=== PATIENT | female | born 1985 | race Caucasian/White ===

== ENCOUNTER 2016-07-26 21:39 | Emergency (ER) | payer OTHER ==
[~2016-07-26] VITALS: Ht 162.5 cm; Wt 99.8 kg
[~2016-07-26 21:39] MED LIST: 'PARAFON FORTE500 M1 PO; ACTOS15 MG PO; AMARYL4 MG; AMARYL4 MG PO; ANAPROX DS550 MG PO; ATARAX25 MG PO; BACTRIM DS 8001 TA1 PO; BENADRYL25 M1 PO; BENTYL10 MG PO; CATAFLAM50 MG PO; CLINDAMYCIN HC300 MG PO; CORTISPORIN OP7.5 ML OPH; DICYCLOMINE HCL20 MG PO; Diabeta,Micron2.5 MG PO; ENDOCET 650 MG-1 TA1 PO; FLAGYL500 MG PO; FLEXERIL10 MG PO; HYDROCODONE BIT1 T11 PO; IBU800 MG PO; JANUVIA100 MG PO; KEFLEX500 MG PO; LANTUS100 U/ML SC; LEVAQUIN750 MG PO; LIDEX 0.05% CRE15 GM T; LIPITOR10 MG PO; MACROBID100 M1 PO; METFORMIN1000 MG PO; METFORMIN500 MG PO; MOTRIN800 MG PO; NEURONTIN300 MG PO; NORCO 5-325 TA1 EACH PO; Orphenadrine C100 MG PO; PERCOCET 325 MG1 TA2 PO; PERCOCET 325 MG1 TA5 PO; PREDNICOT20 MG PO; PREDNISONE20 M1 PO; PRENATAL1 TA3 PO; SEPTRA DS 800 M1 TAB PO; TOPAMAX25 MG; TRAD5TAB1 PO; VICODIN 5/500 505 MG PO; WAL-SOM50 MG PO; ZANTAC 150150 MG PO; ZOFRAN ODT4 MG SL; ZOFRAN4 MG PO; ZUBSOLV1 TA2 SL
[2016-07-26] MEDS ORDERED: LIDOCAINE HCL100 M1 MM (21:52)
[2016-07-26] MEDS ORDERED: Peridex 473 ML473 ML PO (21:52)
== END 2016-07-26 22:05 | disposition home or self-care (01) ==
LOC: ED 21:39
DX: K02.9 Dental caries, unspecified (principal); R03.0 Elevated blood-pressure reading, without diagnosis of hypertension; F17.200 Nicotine dependence, unspecified, uncomplicated; Z88.0 Allergy status to penicillin; Z88.1 Allergy status to other antibiotic agents; Z79.899 Other long term (current) drug therapy; Z88.8 Allergy status to other drugs, medicaments and biological substances

== ENCOUNTER 2016-11-01 17:24 | Emergency (ER) | payer OTHER ==
[~2016-11-01] VITALS: Ht 162.6 cm; Wt 110.8 kg
[~2016-11-01 17:24] MED LIST changes: +LIDOCAINE HCL100 M1 MM; +Peridex 473 ML473 ML PO
[2016-11-01] MEDS ORDERED: SUBOXONE 8 MG-1 EACH SL (17:31)
[2016-11-01 17:32] VITALS: BP 130/74
[2016-11-01] MEDS ORDERED: ATORVASTATIN CA10 M1 PO (17:32)
[2016-11-01 18:29] LABS: ALBUMIN 3.5 gm/dl (3.1-4.5); ALKALINE PHOSPHATASE 104 U/L (45-117); BILIRUBIN, TOTAL 0.5 mg/dl (0.2-1.0); BUN 7 mg/dl (7-24); CARBON DIOXIDE 23 mmol/L (21-32); CHLORIDE 102 mmol/L (98-107); EST GLOM FILT AFRICAN AMERICAN > 60 ml/min; GLUCOSE 173 mg/dL (65-99); POTASSIUM 3.8 mmol/L (3.5-5.1); SGOT/AST 14 IU/L (3-35); SGPT/ALT 18 U/L (12-78); SODIUM 135 mmol/L (136-145); TOTAL PROTEIN 8.7 gm/dL (6.4-8.2)
[2016-11-01 18:37] LABS: BASO % 0.2 % (0.0-1.0); EOS # 0.2 10*3/uL (0.0-0.4); EOS % 1.4 % (1.0-4.0); HEMATOCRIT 36.2 % (37.0-47.0); HEMOGLOBIN 12.6 g/dl (12.0-16.0); LYMPH # 1.7 10*3/uL (1.3-4.4); LYMPH % 15.1 % (27.0-41.0); MEAN CELL VOLUME 90.5 fl (81.0-99.0); MEAN CORPUSCULAR HGB 31.5 pg (27.0-31.0); MEAN CORPUSCULAR HGB CONC 34.8 g/dl (33.0-37.0); MEAN PLATELET VOLUME 9.4 fl (9.6-12.3); MONO # 0.7 10*3/uL (0.1-1.0); MONO % 6.5 % (3.0-9.0); NEUT # 8.6 10*3/uL (2.3-7.9); NEUT % 76.5 % (47.0-73.0); PLATELET COUNT AUTOMATED 173 10*3/uL (130-400); RED CELL DISTRI WIDTH 13.1 % (0-14.5); WHITE BLOOD COUNT 11.3 10*3/uL (4.8-10.8)
[2016-11-01 19:14] VITALS: BP 108/53
[2016-11-06] MEDS ORDERED: BACTRIM DS 8001 TA1 PO (10:51)
== END 2016-11-01 19:51 | disposition admitted as inpatient to this hospital (09) ==
LOC: ED 17:24 → EDHOLD 18:44 → 5E 19:06 → EDHOLD 19:06 → 5E 22:00
PROVIDERS: Nurse Practitioner Family
DX: A41.9 Sepsis, unspecified organism (principal); I10 Essential (primary) hypertension; L02.415 Cutaneous abscess of right lower limb; R73.9 Hyperglycemia, unspecified; Z87.440 Personal history of urinary (tract) infections; Z88.8 Allergy status to other drugs, medicaments and biological substances; Z88.1 Allergy status to other antibiotic agents; Z88.0 Allergy status to penicillin

== ENCOUNTER 2016-11-05 18:51 | Emergency (ER) | payer OTHER ==
[~2016-11-05] VITALS: Ht 162.5 cm; Wt 102.1 kg
[~2016-11-05 18:51] MED LIST changes: +ATORVASTATIN CA10 M1 PO; +SUBOXONE 8 MG-1 EACH SL
[2016-11-06] MEDS ORDERED: BACTRIM DS 8001 TA1 PO (10:51)
== END 2016-11-05 19:32 | disposition home or self-care (01) ==
LOC: ED 18:51
DX: L02.415 Cutaneous abscess of right lower limb (principal); F17.200 Nicotine dependence, unspecified, uncomplicated; Z88.0 Allergy status to penicillin; Z88.1 Allergy status to other antibiotic agents; Z79.4 Long term (current) use of insulin; Z79.899 Other long term (current) drug therapy

== ENCOUNTER 2016-11-20 21:58 | Emergency (ER) | payer OTHER ==
[~2016-11-20] VITALS: Ht 162.5 cm; Wt 106.6 kg
[2016-11-20] MEDS ORDERED: TOBREX OPHTH S2.5 ML OPH (22:14)
== END 2016-11-20 22:14 | disposition home or self-care (01) ==
LOC: ED 21:58
DX: T15.01XA Foreign body in cornea, right eye, initial encounter (principal); R03.0 Elevated blood-pressure reading, without diagnosis of hypertension; F17.200 Nicotine dependence, unspecified, uncomplicated; G89.29 Other chronic pain; E11.65 Type 2 diabetes mellitus with hyperglycemia; Z98.890 Other specified postprocedural states; Z79.4 Long term (current) use of insulin; Z88.1 Allergy status to other antibiotic agents; Z88.0 Allergy status to penicillin; Z88.8 Allergy status to other drugs, medicaments and biological substances; X58.XXXA Exposure to other specified factors, initial encounter; Y93.89 Activity, other specified; Y92.89 Other specified places as the place of occurrence of the external cause; Y99.9 Unspecified external cause status

== ENCOUNTER 2017-01-09 20:58 | Emergency (ER) | payer OTHER ==
[~2017-01-09] VITALS: Ht 162.5 cm; Wt 102.1 kg
[~2017-01-09 20:58] MED LIST changes: +TOBREX OPHTH S2.5 ML OPH
[2017-01-09] MEDS ORDERED: ZITHROMAX250 MG PO (21:45)
== END 2017-01-09 21:53 | disposition home or self-care (01) ==
LOC: ED 20:58
DX: K08.89 Other specified disorders of teeth and supporting structures (principal); F17.200 Nicotine dependence, unspecified, uncomplicated; Z88.0 Allergy status to penicillin; Z88.1 Allergy status to other antibiotic agents; Z88.8 Allergy status to other drugs, medicaments and biological substances

== ENCOUNTER 2017-01-28 16:28 | Emergency (ER) | payer OTHER ==
[~2017-01-28] VITALS: Ht 162.5 cm; Wt 102.1 kg
[~2017-01-28 16:28] MED LIST changes: +ZITHROMAX250 MG PO
[2017-01-28] MEDS ORDERED: BACTRIM DS 8001 TA1 PO (18:35)
[2017-01-28 18:36] LABS: ALBUMIN 3.4 gm/dl (3.1-4.5); BILIRUBIN, TOTAL 0.4 mg/dl (0.2-1.0); BUN 15 mg/dl (7-24); CARBON DIOXIDE 23 mmol/L (21-32); CHLORIDE 101 mmol/L (98-107); EST GLOM FILT AFRICAN AMERICAN > 60 ml/min; GLUCOSE 190 mg/dL (65-99); POTASSIUM 4.7 mmol/L (3.5-5.1); SGOT/AST 19 IU/L (3-35); SGPT/ALT 17 U/L (12-78); SODIUM 133 mmol/L (136-145); TOTAL PROTEIN 9.2 gm/dL (6.4-8.2)
[2017-01-28 18:37] LABS: ALKALINE PHOSPHATASE 116 U/L (45-117)
[2017-01-28 18:50] LABS: BASO % 0.3 % (0.0-1.0); EOS # 0.1 10*3/uL (0.0-0.4); EOS % 0.9 % (1.0-4.0); HEMATOCRIT 42.5 % (37.0-47.0); HEMOGLOBIN 14.7 g/dl (12.0-16.0); IG # 0.1 10*3/uL (0.0-0.1); LYMPH % 34.3 % (27.0-41.0); MEAN CELL VOLUME 88.7 fl (81.0-99.0); MEAN CORPUSCULAR HGB 30.7 pg (27.0-31.0); MEAN CORPUSCULAR HGB CONC 34.6 g/dl (33.0-37.0); MONO # 0.6 10*3/uL (0.1-1.0); NEUT # 6.9 10*3/uL (2.3-7.9); NEUT % 58.9 % (47.0-73.0); PLATELET COUNT AUTOMATED 279 10*3/uL (130-400); RED BLOOD COUNT 4.79 10*6/uL (4.10-5.10); RED CELL DISTRI WIDTH 12.8 % (0-14.5); WHITE BLOOD COUNT 11.7 10*3/uL (4.8-10.8)
== END 2017-01-28 22:01 | disposition home or self-care (01) ==
LOC: ED 16:28
PROVIDERS: Registered Nurse
DX: K65.1 Peritoneal abscess (principal); F17.200 Nicotine dependence, unspecified, uncomplicated; E11.628 Type 2 diabetes mellitus with other skin complications; Z79.4 Long term (current) use of insulin; Z88.0 Allergy status to penicillin; Z88.1 Allergy status to other antibiotic agents

== ENCOUNTER 2017-02-03 01:38 | Inpatient (IN) | payer OTHER ==
[~2017-02-03] VITALS: Ht 162.5 cm; Wt 107.2 kg
[2017-02-03 01:57] VITALS: BP 126/65
[2017-02-03 02:42] LABS: BASO % 0.4 % (0.0-1.0); EOS # 0.2 10*3/uL (0.0-0.4); EOS % 1.8 % (1.0-4.0); HEMATOCRIT 39.4 % (37.0-47.0); HEMOGLOBIN 13.2 g/dl (12.0-16.0); LYMPH # 3.5 10*3/uL (1.3-4.4); LYMPH % 31.7 % (27.0-41.0); MEAN CELL VOLUME 89.7 fl (81.0-99.0); MEAN CORPUSCULAR HGB 30.1 pg (27.0-31.0); MEAN CORPUSCULAR HGB CONC 33.5 g/dl (33.0-37.0); MEAN PLATELET VOLUME 9.7 fl (9.6-12.3); MONO # 0.7 10*3/uL (0.1-1.0); MONO % 6.2 % (3.0-9.0); NEUT # 6.6 10*3/uL (2.3-7.9); NEUT % 59.7 % (47.0-73.0); PLATELET COUNT AUTOMATED 312 10*3/uL (130-400); RED BLOOD COUNT 4.39 10*6/uL (4.10-5.10)
[2017-02-03 02:45] LABS: INTERNATIONAL NORM RATIO 0.9 (2.0-3.5)
[2017-02-03 02:57] LABS: ALBUMIN 3.4 gm/dl (3.1-4.5); ALKALINE PHOSPHATASE 142 U/L (45-117); B-hCG (QUALITATIVE) NEGATIVE (NEGATIVE); BILIRUBIN, TOTAL 0.3 mg/dl (0.2-1.0); BUN 10 mg/dl (7-24); C-REACTIVE PROTEIN 8.54 MG/DL (0-0.3); CARBON DIOXIDE 21 mmol/L (21-32); CHLORIDE 104 mmol/L (98-107); EST GLOM FILT AFRICAN AMERICAN > 60 ml/min; GLUCOSE 133 mg/dL (65-99); MAGNESIUM 2.1 mg/dL (1.5-2.1); POTASSIUM 3.7 mmol/L (3.5-5.1); SGOT/AST 14 IU/L (3-35); SGPT/ALT 16 U/L (12-78); SODIUM 136 mmol/L (136-145); TOTAL PROTEIN 9.4 gm/dL (6.4-8.2)
[2017-02-03 03:10] LABS: TROPONIN I < 0.015 ng/ml (<0.045)
[2017-02-03 03:40] VITALS: BP 130/76
[2017-02-03 08:00] VITALS: BP 126/64
[2017-02-03 08:18] LABS: BILIRUBIN NEGATIVE (NEGATIVE); BLOOD NEGATIVE (NEGATIVE); CLARITY CLEAR (CLEAR); COLOR YELLOW (YELLOW); GLUCOSE NEGATIVE (NEGATIVE); KETONE NEGATIVE (NEGATIVE); LEUKO ESTERASE NEGATIVE (NEGATIVE); NITRITE NEGATIVE (NEGATIVE); PROTEIN NEGATIVE (NEGATIVE); SPECIFIC GRAVITY >= 1.030 (1.005-1.030)
[2017-02-03 08:24] LABS: BACTERIA 1+; URINE REFLEX COMMENT NO (NO)
[2017-02-03 08:28] LABS: URINE AMPHETAMINES < 1000 (1000ng/ml); URINE BARBITURATES < 200 (200ng/ml); URINE COCAINE < 300 (300ng/ml)
[2017-02-03 16:00] VITALS: BP 115/67
[2017-02-04] VITALS: BP 111/59
[2017-02-04 07:22] LABS: BASO % 0.5 % (0.0-1.0); EOS # 0.2 10*3/uL (0.0-0.4); EOS % 2.9 % (1.0-4.0); HEMATOCRIT 35.5 % (37.0-47.0); HEMOGLOBIN 11.8 g/dl (12.0-16.0); LYMPH # 4.2 10*3/uL (1.3-4.4); LYMPH % 49.8 % (27.0-41.0); MEAN CELL VOLUME 90.3 fl (81.0-99.0); MEAN CORPUSCULAR HGB CONC 33.2 g/dl (33.0-37.0); MEAN PLATELET VOLUME 9.5 fl (9.6-12.3); MONO # 0.6 10*3/uL (0.1-1.0); NEUT # 3.3 10*3/uL (2.3-7.9); NEUT % 39.6 % (47.0-73.0); PLATELET COUNT AUTOMATED 232 10*3/uL (130-400); RED BLOOD COUNT 3.93 10*6/uL (4.10-5.10); RED CELL DISTRI WIDTH 13.1 % (0-14.5); WHITE BLOOD COUNT 8.4 10*3/uL (4.8-10.8)
[2017-02-04 07:39] LABS: BUN 10 mg/dl (7-24); CARBON DIOXIDE 22 mmol/L (21-32); CHLORIDE 106 mmol/L (98-107); EST GLOM FILT AFRICAN AMERICAN > 60 ml/min; FREE T4 1.14 ng/dl (0.76-1.46); GLUCOSE 90 mg/dL (65-99); POTASSIUM 3.8 mmol/L (3.5-5.1); SODIUM 136 mmol/L (136-145)
[2017-02-04 07:51] LABS: HEMOGLOBIN A1c 8.4 % (4.8-5.6)
[2017-02-04 08:00] VITALS: BP 119/70
[2017-02-04 16:00] VITALS: BP 113/61
[2017-02-05] VITALS: BP 121/72
[2017-02-05 05:55] LABS: BASO % 0.6 % (0.0-1.0); EOS # 0.2 10*3/uL (0.0-0.4); EOS % 2.8 % (1.0-4.0); HEMATOCRIT 33.1 % (37.0-47.0); HEMOGLOBIN 11.1 g/dl (12.0-16.0); LYMPH # 3.7 10*3/uL (1.3-4.4); MEAN CELL VOLUME 89.9 fl (81.0-99.0); MEAN CORPUSCULAR HGB 30.2 pg (27.0-31.0); MEAN CORPUSCULAR HGB CONC 33.5 g/dl (33.0-37.0); MEAN PLATELET VOLUME 9.6 fl (9.6-12.3); MONO # 0.5 10*3/uL (0.1-1.0); MONO % 7.1 % (3.0-9.0); NEUT # 2.8 10*3/uL (2.3-7.9); NEUT % 38.2 % (47.0-73.0); PLATELET COUNT AUTOMATED 227 10*3/uL (130-400); RED BLOOD COUNT 3.68 10*6/uL (4.10-5.10); RED CELL DISTRI WIDTH 12.8 % (0-14.5); WHITE BLOOD COUNT 7.2 10*3/uL (4.8-10.8)
[2017-02-05 06:05] LABS: BUN 11 mg/dl (7-24); CARBON DIOXIDE 24 mmol/L (21-32); CHLORIDE 107 mmol/L (98-107); EST GLOM FILT AFRICAN AMERICAN > 60 ml/min; GLUCOSE 100 mg/dL (65-99); SODIUM 136 mmol/L (136-145)
[2017-02-05 08:00] VITALS: BP 135/76
[2017-02-05] MEDS ORDERED: BACTRIM DS 8001 TA1 PO (15:52)
[2017-02-05] MEDS ORDERED: CEPHALEXIN500 M1 PO (15:57)
[2017-02-05 16:00] VITALS: BP 125/57
== END 2017-02-05 18:44 | disposition home or self-care (01) | DRG 872 ==
LOC: ED 01:38 → 4E 03:09 → EDHOLD 03:09 → 4E 03:24
PROVIDERS: Emergency Medicine Emergency Medical Services; Family Medicine
PROC: 0H97XZZ Drainage of Abdomen Skin, External Approach (ICD-10-PCS; principal; 2017-02-03)
DX: A41.9 Sepsis, unspecified organism (principal); E11.628 Type 2 diabetes mellitus with other skin complications; E44.0 Moderate protein-calorie malnutrition; Z68.41 Body mass index [BMI] 40.0-44.9, adult; L02.211 Cutaneous abscess of abdominal wall; F11.23 Opioid dependence with withdrawal; E66.01 Morbid (severe) obesity due to excess calories; M54.30 Sciatica, unspecified side; K02.9 Dental caries, unspecified; E28.2 Polycystic ovarian syndrome; G89.4 Chronic pain syndrome; Z87.440 Personal history of urinary (tract) infections; Z82.49 Family history of ischemic heart disease and other diseases of the circulatory system; Z88.0 Allergy status to penicillin; Z88.1 Allergy status to other antibiotic agents; Z88.8 Allergy status to other drugs, medicaments and biological substances; Z79.4 Long term (current) use of insulin

== ENCOUNTER 2017-07-16 15:46 | Emergency (ER) | payer OTHER ==
[~2017-07-16] VITALS: Ht 162.5 cm; Wt 104.3 kg
[~2017-07-16 15:46] MED LIST changes: +CEPHALEXIN500 M1 PO
[2017-07-16] MEDS ORDERED: KEFLEX500 M1 PO (16:12)
== END 2017-07-16 16:20 | disposition home or self-care (01) ==
LOC: ED 15:46
DX: K02.9 Dental caries, unspecified (principal); R03.0 Elevated blood-pressure reading, without diagnosis of hypertension; F17.200 Nicotine dependence, unspecified, uncomplicated; Z98.890 Other specified postprocedural states; Z88.1 Allergy status to other antibiotic agents; Z88.3 Allergy status to other anti-infective agents; Z88.8 Allergy status to other drugs, medicaments and biological substances; Z79.4 Long term (current) use of insulin; Z88.0 Allergy status to penicillin

== ENCOUNTER 2017-10-23 19:34 | Emergency (ER) | payer OTHER ==
[~2017-10-23] VITALS: Ht 162.5 cm; Wt 102.1 kg
[~2017-10-23 19:34] MED LIST changes: +KEFLEX500 M1 PO
[2017-10-23 20:21] LABS: BASO # 0.1 10*3/uL (0.0-0.1); BASO % 0.7 % (0.0-1.0); EOS # 0.2 10*3/uL (0.0-0.4); HEMOGLOBIN 13.4 g/dl (12.0-16.0); LYMPH # 2.2 10*3/uL (1.3-4.4); LYMPH % 30.3 % (27.0-41.0); MEAN CELL VOLUME 88.7 fl (81.0-99.0); MEAN CORPUSCULAR HGB 29.7 pg (27.0-31.0); MEAN CORPUSCULAR HGB CONC 33.5 g/dl (33.0-37.0); MONO # 0.5 10*3/uL (0.1-1.0); MONO % 6.4 % (3.0-9.0); NEUT # 4.3 10*3/uL (2.3-7.9); NEUT % 59.3 % (47.0-73.0); PLATELET COUNT AUTOMATED 212 10*3/uL (130-400); RED BLOOD COUNT 4.51 10*6/uL (4.10-5.10); RED CELL DISTRI WIDTH 13.9 % (0-14.5); WHITE BLOOD COUNT 7.2 10*3/uL (4.8-10.8)
[2017-10-23 20:36] LABS: ALBUMIN 3.4 gm/dl (3.1-4.5); ALKALINE PHOSPHATASE 109 U/L (45-117); BUN 13 mg/dl (7-24); CHLORIDE 105 mmol/L (98-107); CREATININE 0.67 mg/dL (0.55-1.02); POTASSIUM 3.8 mmol/L (3.5-5.1); SGOT/AST 19 IU/L (3-35); SGPT/ALT 21 U/L (12-78); SODIUM 138 mmol/L (136-145); TOTAL PROTEIN 8.8 gm/dL (6.4-8.2)
[2017-10-23 20:38] LABS: B-hCG (QUALITATIVE) NEGATIVE (NEGATIVE)
[2017-10-23] MEDS ORDERED: ZITHROMAX250 MG PO (20:58)
[2017-10-23] MEDS ORDERED: DUONEB 3 MG/3 ML3 M1 INH (20:58)
[2017-10-23] MEDS ORDERED: PREDNISONE20 M1 PO (20:58)
== END 2017-10-23 21:10 | disposition home or self-care (01) ==
LOC: ED 19:34
PROVIDERS: Emergency Medicine Emergency Medical Services
DX: J20.9 Acute bronchitis, unspecified (principal); J45.909 Unspecified asthma, uncomplicated; E11.9 Type 2 diabetes mellitus without complications; E66.9 Obesity, unspecified; F17.200 Nicotine dependence, unspecified, uncomplicated; Z88.0 Allergy status to penicillin; Z88.1 Allergy status to other antibiotic agents; Z88.6 Allergy status to analgesic agent; Z68.42 Body mass index [BMI] 45.0-49.9, adult

== ENCOUNTER 2018-01-23 20:08 | Emergency (ER) | payer OTHER ==
[~2018-01-23] VITALS: Ht 162.5 cm; Wt 102.1 kg
[~2018-01-23 20:08] MED LIST changes: +DUONEB 3 MG/3 ML3 M1 INH
[2018-01-23] MEDS ORDERED: KEFLEX500 M1 PO (20:25)
== END 2018-01-23 20:32 | disposition home or self-care (01) ==
LOC: ED 20:08
DX: K04.7 Periapical abscess without sinus (principal); Z88.0 Allergy status to penicillin; Z88.1 Allergy status to other antibiotic agents

== ENCOUNTER 2018-04-14 19:40 | Emergency (ER) | payer OTHER ==
[~2018-04-14] VITALS: Ht 162.5 cm; Wt 100.2 kg
[2018-04-14] MEDS ORDERED: CEPHALEXIN500 M1 PO (20:43)
== END 2018-04-14 21:00 | disposition home or self-care (01) ==
LOC: ED 19:40
DX: K02.9 Dental caries, unspecified (principal); Z88.1 Allergy status to other antibiotic agents; Z88.0 Allergy status to penicillin; Z88.6 Allergy status to analgesic agent; Z79.2 Long term (current) use of antibiotics; Z79.899 Other long term (current) drug therapy; Z79.4 Long term (current) use of insulin; Z79.84 Long term (current) use of oral hypoglycemic drugs

== ENCOUNTER 2019-03-21 20:28 | Emergency (ER) | payer OTHER ==
[~2019-03-21] VITALS: Wt 102.1 kg
[~2019-03-21 20:28] MED LIST changes: +ELIMITE 5%60 GM T; +VISTARIL50 MG PO
== END 2019-03-21 23:23 | disposition home or self-care (01) ==
LOC: ED 20:28
DX: H18.829 Corneal disorder due to contact lens, unspecified eye (principal); H10.9 Unspecified conjunctivitis; G89.29 Other chronic pain; E66.01 Morbid (severe) obesity due to excess calories; E11.9 Type 2 diabetes mellitus without complications; F17.200 Nicotine dependence, unspecified, uncomplicated; Z88.1 Allergy status to other antibiotic agents; Z88.0 Allergy status to penicillin; Z88.8 Allergy status to other drugs, medicaments and biological substances; Z79.2 Long term (current) use of antibiotics; Z79.899 Other long term (current) drug therapy; Z68.41 Body mass index [BMI] 40.0-44.9, adult

== ENCOUNTER 2019-05-26 04:02 | Emergency (ER) | payer OTHER ==
[~2019-05-26] VITALS: Ht 157.4 cm; Wt 117.9 kg
[2019-05-26] MEDS ORDERED: CEPHALEXIN500 M1 PO (05:30)
== END 2019-05-26 05:44 | disposition home or self-care (01) ==
LOC: ED 04:02
DX: K04.01 Reversible pulpitis (principal); K02.9 Dental caries, unspecified; E11.9 Type 2 diabetes mellitus without complications; E66.01 Morbid (severe) obesity due to excess calories; G43.909 Migraine, unspecified, not intractable, without status migrainosus; F17.200 Nicotine dependence, unspecified, uncomplicated; Z88.0 Allergy status to penicillin; Z88.1 Allergy status to other antibiotic agents; Z88.8 Allergy status to other drugs, medicaments and biological substances; Z79.2 Long term (current) use of antibiotics; Z79.899 Other long term (current) drug therapy; Z68.41 Body mass index [BMI] 40.0-44.9, adult

== ENCOUNTER → 2020-05-29 | Outpatient (CLI) | payer SELFPAY | END | disposition home or self-care (01) | LOC: COVID19 14:10 | PROVIDERS: ATTEND Internal Medicine | DX: Z20.828 Contact with and (suspected) exposure to other viral communicable diseases (principal) ==

== ENCOUNTER 2021-09-26 03:03 | Emergency (ER) | payer SELFPAY ==
[~2021-09-26] VITALS: Ht 162.5 cm; Wt 108.9 kg
[2021-09-26] MEDS ORDERED: BUPRENORPHINE-1 EAC1 SL (03:25)
[2021-09-26] MEDS ORDERED: SEPTDS PO (03:37)
== END 2021-09-26 03:47 | disposition home or self-care (01) ==
LOC: ED 03:03
DX: L03.115 Cellulitis of right lower limb (principal); Z88.0 Allergy status to penicillin; Z88.1 Allergy status to other antibiotic agents; Z88.8 Allergy status to other drugs, medicaments and biological substances; Z79.899 Other long term (current) drug therapy; Z98.890 Other specified postprocedural states; F17.200 Nicotine dependence, unspecified, uncomplicated

== ENCOUNTER → 2025-03-28 | Outpatient (CLI) | payer OTHER ==
[~2025-03-28] MED LIST changes: +BUPRENORPHINE-1 EAC1 SL; +SEPTDS PO
[2025-03-28 12:07] LABS: BASO # 0.1 10*3/uL (0.0-0.1); BASO % 0.7 % (0.0-1.0); EOS # 0.2 10*3/uL (0.0-0.4); EOS % 2.5 % (1.0-4.0); MEAN CELL VOLUME 94.6 fl (81.0-99.0); MEAN CORPUSCULAR HGB 32.3 pg (27.0-31.0); MEAN PLATELET VOLUME 9.9 fl (9.6-12.3); MONO # 0.4 10*3/uL (0.1-1.0); MONO % 6.2 % (3.0-9.0); NEUT # 4.3 10*3/uL (2.3-7.9); NEUT % 60.1 % (47.0-73.0); NUCLEATED RED BLOOD CELL 0.0 % (0.0-0.0); NUCLEATED RED BLOOD CELL 0.0 10*3/uL (0.0-0.0); PLATELET COUNT AUTOMATED 206 10*3/uL (130-400); RED CELL DISTRI WIDTH 12.8 % (0-14.5)
[2025-03-28 12:54] LABS: BUN 12 mg/dl (9-23); FREE T4 0.90 ng/dl (0.89-1.76); LDL CHOLESTEROL 94 mg/dL (9-159); SGPT/ALT 13 U/L (5-49)
[2025-03-28 13:24] LABS: VITAMIN D, 25-HYDROXY 18.8 ng/mL (30-100)
== END | disposition home or self-care (01) ==
LOC: LAB 10:37
PROVIDERS: ATTEND Internal Medicine Nephrology
DX: E11.69 Type 2 diabetes mellitus with other specified complication (principal); R53.82 Chronic fatigue, unspecified; E66.812 Obesity, class 2; F11.21 Opioid dependence, in remission; F17.200 Nicotine dependence, unspecified, uncomplicated; Z79.4 Long term (current) use of insulin; Z68.37 Body mass index [BMI] 37.0-37.9, adult

== ENCOUNTER → 2025-04-09 | Outpatient (CLI) | payer OTHER | END | disposition home or self-care (01) | LOC: MAMMO 03-26 10:00 | PROVIDERS: ATTEND Internal Medicine Nephrology | DX: Z12.31 Encounter for screening mammogram for malignant neoplasm of breast (principal); R92.313 Mammographic fatty tissue density, bilateral breasts ==

== ENCOUNTER → 2025-04-17 | Day surgery (SDC) | payer OTHER ==
[~2025-04-17] VITALS: Ht 162.5 cm; Wt 98.4 kg
[~2025-04-17] MED LIST changes: +ACETAMINOPHEN 100 ML IV ONE; +Bacitracin Zinc/Neomycin/Pol 0.9 GM PACKET T ONE; +Bupivacaine Hydrochloride/Ep2 30 ML VIAL ONE; +Dexamethasone Sodium Phospha 4 MG/ML VIAL IV ONE; +Gelatin Sponge 1 EACH SPON T ONE; +JARDIANCE10 MG PO; +Ketamine Hydrochloride 50 MG/5 ML SYRINGE IV ONE; +Lactated Ringer's Solution 1,000 ML IV ONE; +Lidocaine Hydrochloride 2% 5 ML SDV IV ONE; +METFORMIN HYD1000 MG PO; +Midazolam Hydrochloride 2 MG/2 ML VIAL IV ONE; +Ondansetron Hydrochloride 4 MG/2 ML VIAL IV ONE; +PROPOFOL 200 MG/20 ML VIAL IV ONE; +Phenylephrine Hydrochloride 1 MG/10 ML SYRINGE IV ONE; +ROCURONIUM BROMIDE 50 MG/5 ML SYRINGE IV ONE; +SEVOFLURANE 250 ML BOT INH ONE; +SODIUM CHLORIDE 0.9% 100 ML IV ONE; +SUGAMMADEX SODIUM 200 MG/2 ML VIAL IV ONE; +VITAMIN D3125 MC1 PO
[2025-04-17 07:22] VITALS: BP 130/72
[2025-04-17 09:45] VITALS: BP 103/61
[2025-04-17 10:00] VITALS: BP 123/58
[2025-04-17 10:15] VITALS: BP 122/61
[2025-04-17 10:30] VITALS: BP 117/59
[2025-04-17 10:44] VITALS: BP 132/74
== END ==
LOC: SDC 04-13 10:15
PROVIDERS: ATTEND Dentist General Practice
DX: K08.89 Other specified disorders of teeth and supporting structures (principal); K02.9 Dental caries, unspecified; F41.9 Anxiety disorder, unspecified; E11.65 Type 2 diabetes mellitus with hyperglycemia; E78.5 Hyperlipidemia, unspecified; F11.21 Opioid dependence, in remission; E55.9 Vitamin D deficiency, unspecified; E11.9 Type 2 diabetes mellitus without complications; M54.9 Dorsalgia, unspecified; G47.30 Sleep apnea, unspecified; G43.909 Migraine, unspecified, not intractable, without status migrainosus; F17.200 Nicotine dependence, unspecified, uncomplicated; E66.89 Other obesity not elsewhere classified; Z68.37 Body mass index [BMI] 37.0-37.9, adult; Z98.890 Other specified postprocedural states; Z79.899 Other long term (current) drug therapy; Z88.0 Allergy status to penicillin; Z88.8 Allergy status to other drugs, medicaments and biological substances

== ENCOUNTER 2025-04-21 12:51 | Emergency (ER) | payer OTHER ==
[~2025-04-21] VITALS: Ht 162.5 cm; Wt 97.5 kg
[~2025-04-21 12:51] MED LIST changes: -ACETAMINOPHEN 100 ML IV ONE; -Bacitracin Zinc/Neomycin/Pol 0.9 GM PACKET T ONE; -Bupivacaine Hydrochloride/Ep2 30 ML VIAL ONE; -Dexamethasone Sodium Phospha 4 MG/ML VIAL IV ONE; -Gelatin Sponge 1 EACH SPON T ONE; -Ketamine Hydrochloride 50 MG/5 ML SYRINGE IV ONE; -Lactated Ringer's Solution 1,000 ML IV ONE; -Lidocaine Hydrochloride 2% 5 ML SDV IV ONE; -Midazolam Hydrochloride 2 MG/2 ML VIAL IV ONE; -Ondansetron Hydrochloride 4 MG/2 ML VIAL IV ONE; -PROPOFOL 200 MG/20 ML VIAL IV ONE; -Phenylephrine Hydrochloride 1 MG/10 ML SYRINGE IV ONE; -ROCURONIUM BROMIDE 50 MG/5 ML SYRINGE IV ONE; -SEVOFLURANE 250 ML BOT INH ONE; -SODIUM CHLORIDE 0.9% 100 ML IV ONE; -SUGAMMADEX SODIUM 200 MG/2 ML VIAL IV ONE
== END 2025-04-21 14:29 | disposition home or self-care (01) ==
LOC: ED 12:51
DX: K08.89 Other specified disorders of teeth and supporting structures (principal); Z98.890 Other specified postprocedural states; Z88.0 Allergy status to penicillin; Z88.1 Allergy status to other antibiotic agents; Z88.8 Allergy status to other drugs, medicaments and biological substances